=== PATIENT | female | born 1950 | race Caucasian/White ===

== ENCOUNTER 2019-07-22 08:09 | Day surgery (SDC) | payer MEDICARE, SELFPAY ==
[2019-07-22] MEDS: PROPARACAINE 0.5% OPHTH SOL 2 DROPS EYE-OP (09:10)
[2019-07-22 09:15] VITALS: BP 140/64; PULSE 48; RESP 16; TEMP 37.6; O2SAT 100
[2019-07-22] MEDS: CATARACT EYE COMPOUND (10 DROPS/SYRINGE) 3 DROPS EYE-OP (09:15)
--- NOTE | 2019-07-22 09:59 | PM.PREOP ---
Pre-operative Note Interval Note History & Physical reviewed/Exam performed by Physician: No Changes to H&P: No
--- NOTE | 2019-07-22 09:59 | PM.OP.1 ---
Operative Date/Time/Diagnoses Pre-op diagnosis: Nuclear cataract right eye Procedure & Clinicians Procedure: Cataract Surgery Same procedure as scheduled: Yes Surgeon: Suleman Morgan Anesthesia Type: MAC +/- and Sedation Operative Notes Procedure in detail: Patient brought to the operating suite. Tetracaine drops placed in the right eye. Patient was prepped and draped in sterile manner. Wire lid speculum was placed in the eye. Betadine drops were placed on the eye. This was irrigated. Lidocaine jelly was placed on the eye. A paracentesis port was created with a side-port blade. 0.1 mL 1% preservative free lidocaine was injected into the anterior chamber. The anterior chamber was deepened with viscoelastic. 2.6 mm keratome was used to create a temporal clear corneal incision. Cystotome and Utrata forceps were used to create continuous tear capsulorrhexis. Balanced salt solution was used to hydro dissect the nucleus. The phacoemulsification handpiece was inserted and the nucleus was removed using the stop and chop technique. The irrigation aspiration handpiece was inserted and the remaining cortex was removed. Anterior chamber was deepened with viscoelastic. An Mathis ZCB00 intraocular lens with a power of 23.0 was injected into the capsular bag. Irrigation aspiration handpiece was inserted and the remaining viscoelastic was removed. Incision was hydrated with balanced salt solution and found to be leak free with pressure with Weck-Aishwarya sponges. 0.1 mL Vigamox injected anterior chamber. 0.3 mL Kenalog 10 mg was injected subconjunctivally. Lid speculum was removed. The patient left the operating room in excellent condition. Complications: none Condition: stable Disposition: same day surgery
[2019-07-22] MEDS: MOXIFLOXACIN INJ 5 MG/ML VIAL EYE-OP (10:18)
[2019-07-22] MEDS: PHENYLEPHRINE/LIDOCAINE VIAL (OR) 0.2 ML EYE-OP (10:18)
[2019-07-22] MEDS: CHONDROIDTIN/SOD HYALURONATE 1.05 ML SYRINGE INTRAOCULA (10:19)
[2019-07-22] MEDS: TETRACAINE 0.5% OPHTH DROPS 4 ML 2 DROPS EYE-OP (10:19)
[2019-07-22] MEDS: BALANCED SALT IRRIG SOLN NO.2 500 ML, EPINEPHrine 1 MG IRR (10:19)
[2019-07-22] MEDS: LIDOCAINE JELLY 2% 5 ML 1 APPLIC TOP (10:19)
[2019-07-22] MEDS: TRIAMCINOLONE 50 MG/5 ML VIAL INJ (10:20)
[2019-07-22 10:35] VITALS: BP 126/60; PULSE 50; RESP 16; TEMP 36.6; O2SAT 100
== END 2019-07-22 10:44 | disposition home or self-care (01) ==
PROVIDERS: PCP Specialist; Visit Provider Ophthalmology
PROC: (CPT 66984; principal; 2019-07-22 10:15)
DX: H25.11 Age-related nuclear cataract, right eye (principal)
CPT/HCPCS: 66984; J0171; J2250; J3301

== ENCOUNTER 2019-08-05 07:43 | Day surgery (SDC) | payer MEDICARE, SELFPAY ==
[2019-08-05 08:31] VITALS: BP 150/70; PULSE 57; RESP 16; TEMP 36.3; O2SAT 100; BMI 16.9
[2019-08-05] MEDS: PROPARACAINE 0.5% OPHTH SOL 2 DROPS EYE-OP (08:40)
[2019-08-05] MEDS: CATARACT EYE COMPOUND (10 DROPS/SYRINGE) 3 DROPS EYE-OP (08:42)
--- NOTE | 2019-08-05 09:55 | PM.PREOP ---
Pre-operative Note Interval Note History & Physical reviewed/Exam performed by Physician: No Changes to H&P: No
--- NOTE | 2019-08-05 09:55 | PM.OP.1 ---
Operative Date/Time/Diagnoses Pre-op diagnosis: Nuclear Cataract Left eye Post-op diagnosis: same Procedure & Clinicians Surgeon: Suleman Morgan Anesthesia Type: MAC +/- and Sedation Operative Notes Procedure in detail: Patient brought to the operating suite. Tetracaine drops placed in the left eye. Patient was prepped and draped in sterile manner. Wire lid speculum was placed in the eye. Betadine drops were placed on the eye. This was irrigated. Lidocaine jelly was placed on the eye. A paracentesis port was created with a side-port blade. 0.1 mL 1% preservative free lidocaine was injected into the anterior chamber. The anterior chamber was deepened with viscoelastic. 2.6 mm keratome was used to create a temporal clear corneal incision. Cystotome and Utrata forceps were used to create continuous tear capsulorrhexis. Balanced salt solution was used to hydro dissect the nucleus. The phacoemulsification handpiece was inserted and the nucleus was removed using the stop and chop technique. The irrigation aspiration handpiece was inserted and the remaining cortex was removed. Anterior chamber was deepened with viscoelastic. An Mathis ZCB00 intraocular lens with a power of 22.5 was injected into the capsular bag. Irrigation aspiration handpiece was inserted and the remaining viscoelastic was removed. Incision was hydrated with balanced salt solution and found to be leak free with pressure with Weck-Aishwarya sponges. 0.1 mL Vigamox injected anterior chamber. 0.3 mL Kenalog 10 mg was injected subconjunctivally. Lid speculum was removed. The patient left the operating room in excellent condition. Complications: none Post-operative Condition: stable Disposition: same day surgery
[2019-08-05] MEDS: TRIAMCINOLONE 50 MG/5 ML VIAL INJ (10:09)
[2019-08-05] MEDS: PHENYLEPHRINE/LIDOCAINE VIAL (OR) 0.2 ML EYE-OP (10:09)
[2019-08-05] MEDS: MOXIFLOXACIN INJ 5 MG/ML VIAL EYE-OP (10:09)
[2019-08-05] MEDS: LIDOCAINE JELLY 2% 5 ML 1 APPLIC TOP (10:10)
[2019-08-05] MEDS: BALANCED SALT IRRIG SOLN NO.2 500 ML, EPINEPHrine 1 MG IRR (10:10)
[2019-08-05] MEDS: TETRACAINE 0.5% OPHTH DROPS 4 ML 2 DROPS EYE-OP (10:10)
[2019-08-05] MEDS: CHONDROIDTIN/SOD HYALURONATE 1.05 ML SYRINGE INTRAOCULA (10:10)
[2019-08-05 12:33] VITALS: BP 127/67; PULSE 57; TEMP 36.9; O2SAT 100
== END 2019-08-05 10:30 | disposition home or self-care (01) ==
PROVIDERS: PCP Specialist; Visit Provider Ophthalmology
PROC: (CPT 66984; principal; 2019-08-05 09:45)
DX: H25.12 Age-related nuclear cataract, left eye (principal)
CPT/HCPCS: 66984; J0171; J2250; J3010; J3301